=== PATIENT | male | born 2005 | race Two or more races ===

== ENCOUNTER 2024-03-25 12:18 | Emergency (ER) | payer OTHER ==
[~2024-03-25] VITALS: Ht 172.7 cm; Wt 77.5 kg
[2024-03-25 13:34] VITALS: BP 126/80; PULSE 76; RESP 18; TEMP 98.6; O2SAT 98
== END 2024-03-25 13:36 | disposition home or self-care (01) ==
LOC: ER 12:18
DX: D18.09 Hemangioma of other sites (principal)